=== PATIENT | male | born 2005 | race Two or more races ===

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

== ENCOUNTER 2025-04-05 19:01 | Emergency (ER) | payer OTHER | END 2025-04-05 19:19 | disposition home or self-care (01) | LOC: DL.ED 19:01 | DX: M25.521 Pain in right elbow (principal); E66.9 Obesity, unspecified; F17.200 Nicotine dependence, unspecified, uncomplicated; Z79.1 Long term (current) use of non-steroidal anti-inflammatories (NSAID); Z68.37 Body mass index [BMI] 37.0-37.9, adult; W01.198A Fall on same level from slipping, tripping and stumbling with subsequent striking against other object, initial encounter | CPT/HCPCS: 99283 ==